=== PATIENT | female | born 1980 | race Caucasian/White ===

== ENCOUNTER 2023-04-27 18:14 | Outpatient (CLI) | payer MEDICAID | END 2023-04-27 23:59 | disposition critical access hospital (66) | LOC: EMS 18:14 | DX: R42 Dizziness and giddiness (principal) | CPT/HCPCS: A0425; A0427; A0999 ==

== ENCOUNTER 2023-04-27 18:34 | Emergency (ER) | payer MEDICAID ==
[2023-04-27 19:11] LABS: BASOPHILS # (AUTO) 0.1 10^3/uL (0.0-0.1); BASOPHILS % (AUTO) 0.4 %; EOSINOPHILS # (AUTO) 0.2 10^3/uL (0.0-0.7); EOSINOPHILS % (AUTO) 1.6 %; HCT - HEMATOCRIT 39.4 % (37.0-47.0); HGB - HEMOGLOBIN 12.1 g/dL (12.0-16.0); LYMPHOCYTES # (AUTO) 2.8 10^3/uL (1.5-3.5); LYMPHOCYTES % (AUTO) 20.1 %; MEAN CORPUSCULAR HEMOGLOBIN 25.4 pg (27.0-31.0); MEAN CORPUSCULAR HGB CONC 30.7 g/dL (32.0-36.0); MEAN CORPUSCULAR VOLUME 82.6 fL (81.0-99.0); MEAN PLATELET VOLUME 8.6 fL (7.9-10.8); MONOCYTES # (AUTO) 0.6 10^3/uL (0.0-1.0); MONOCYTES % (AUTO) 4.4 %; NEUTROPHILS # (AUTO) 10.2 10^3/uL (1.5-6.6); NEUTROPHILS % (AUTO) 73.1 %; PLT - PLATELET COUNT 366 10^3/uL (130-450); RED BLOOD COUNT 4.77 10^6/uL (4.20-5.40); WHITE BLOOD COUNT 13.9 x10^3/uL (4.8-10.8)
[2023-04-27 19:30] LABS: ALBUMIN 3.1 g/dL (3.2-5.5); ALBUMIN/GLOBULIN RATIO 0.7 (1.0-2.2); BILIRUBIN,TOTAL 0.4 mg/dL (0.2-1.0); CALCIUM 8.4 mg/dL (8.5-10.3); CREATININE 0.7 mg/dL (0.4-1.0); POTASSIUM 3.7 mmol/L (3.5-5.0); TOTAL PROTEIN 7.8 g/dL (6.7-8.2)
[2023-04-27 19:35] LABS: BILIRUBIN,URINE NEGATIVE (NEGATIVE); GLUCOSE, URINE (UA) NEGATIVE (NEGATIVE); KETONES,URINE (UA) NEGATIVE (NEGATIVE); LEUKOCYTE ESTERASE, URINE TRACE (NEGATIVE); NITRITE,URINE NEGATIVE (NEGATIVE); OCCULT BLOOD,URINE NEGATIVE (NEGATIVE); PH,URINE 5.5 PH (5.0-7.5); PROTEIN,URINE TRACE mg/dL (NEGATIVE); UROBILINOGEN,URINE 0.2 (NORMAL) E.U./dL (NORMAL)
[2023-04-27 19:36] LABS: CLARITY,URINE HAZY (CLEAR); HCG UR QUAL NEGATIVE
[2023-04-27 19:44] LABS: BACTERIA,URINE Moderate /HPF (None Seen); MUCUS,URINE Moderate Strands; RBC,URINE 0-5 /HPF (0-5); SQUAMOUS EPITHELIAL CELL,UR MOD Squamous (<= Few)
--- NOTE | 2023-04-27 19:58 | ED Physician Documentation ---
PD HPI SYNCOPE - Stated complaint Stated Complaint: DIZZINESS - Chief complaint Chief Complaint: Neuro - History obtained from History obtained from: Patient, EMS - History of Present Illness Witnessed: Witnessed Timing - onset: Today Duration: No: Seconds, Minutes, Hours Pain level max: 0 Pain level now: 0 - Additional information Additional information: Patient is a 43-year-old female who presents to the emergency department complaining of syncope today. She states she was out on a carnival today in the sun, did not eat or drink much. She had been sitting down when she stood up and felt lightheaded. She started to walk towards her car when she felt her vision go "dim". She states she sat down and passed out on the ground. She currently feels normal. No chest pain. No shortness of breath. No palpitations. Recent travel. No recent surgery. No leg swelling. Not on any hormonal therapies. Does not smoke. No history of DVT or PE. No cardiac history. Review of Systems Constitutional: denies: Fever, Chills Respiratory: denies: Dyspnea, Cough GI: denies: Nausea, Vomiting, Diarrhea : denies: Dysuria Skin: denies: Rash Musculoskeletal: denies: Neck pain, Back pain Neurologic: denies: Headache PD PAST MEDICAL HISTORY - Past Medical History Cardiovascular: None Respiratory: None GI: GERD Psych: Depression - Past Surgical History Past Surgical History: Yes /[employer]: Tubal ligation - Present Medications Home Medications: Ambulatory Orders Medication Instructions Recorded Confirmed Acetaminophen [Tylenol] 650 mg PO ONCE 02/03/15 02/03/15 Meclizine [Antivert] 12.5 mg PO ONCE 02/03/15 02/03/15 raNITIdine HCl [Zantac] 150 mg PO DAILY 02/03/15 02/03/15 - Allergies Allergies/Adverse Reactions: Allergies Allergy/AdvReac Type Severity Reaction Status Date / Time codeine [Codeine] Allergy Rash Verified 03/04/13 18:00 Penicillins Allergy Rash Verified 03/04/13 18:02 promethazine HCl * Allergy twitching Verified 03/04/13 18:02 [From Phenergan] acetaminophen [From Vicodin] AdvReac vomiting Verified 03/04/13 18:01 hydrocodone bitartrate * AdvReac vomiting Verified 03/04/13 18:01 [From Vicodin] - Social History Does the pt smoke?: No Smoking Status: Never smoker Does the pt drink ETOH?: No Does the pt have substance abuse?: No - Immunizations Immunizations are current?: No Immunizations: Other immun current - POLST Patient has POLST: No PD ED PE NORMAL - Vitals Vital signs reviewed: Yes - General General: Alert and oriented X 3, No acute distress - HEENT HEENT: Atraumatic, PERRL, EOMI, Moist mucous membranes - Neck Neck: Supple, no meningeal sign, No bony TTP - Cardiac Cardiac: RRR, No murmur, Strong equal pulses - Respiratory Respiratory: No respiratory distress, Clear bilaterally - Abdomen Abdomen: Normal bowel sounds, Soft, Non tender, Non distended - Derm Derm: Warm and dry, No rash - Extremities Extremities: No edema, No calf tenderness / cord - Neuro Neuro: Alert and oriented X 3 - Psych Psych: Normal mood, Normal affect Results - Vitals Vitals: Vital Signs - 24 hr 04/27/23 04/27/23 04/27/23 18:46 19:30 20:07 Temperature 36.2 C L Heart Rate 86 86 Heart Rate [ 92 Sitting] Heart Rate [ 97 Standing] Heart Rate [ 84 Supine] Respiratory 15 16 Rate Blood Pressure 120/63 116/61 Blood Pressure 127/89 H [Sitting] Blood Pressure 126/74 [Standing] Blood Pressure 117/73 [Supine] O2 Saturation 100 100 04/27/23 20:54 Temperature Heart Rate 84 Heart Rate [ Sitting] Heart Rate [ Standing] Heart Rate [ Supine] Respiratory 15 Rate Blood Pressure 112/75 Blood Pressure [Sitting] Blood Pressure [Standing] Blood Pressure [Supine] O2 Saturation 98 Oxygen O2 Source Room air - EKG (time done) 1913 EKG releavant findings:: EKG personally interpreted by author of this note. Relevant findings are: Rate: Rate (enter#) (87) Rhythm: NSR [place]: Normal Intervals: Normal [place] QRS: Normal Ischemia: Normal ST segments - Labs Labs: Laboratory Tests 04/27/23 04/27/23 04/27/23 19:06 19:06 19:06 WBC 13.9 H RBC 4.77 Hgb 12.1 Hct 39.4 MCV 82.6 MCH 25.4 L MCHC 30.7 L RDW 14.0 Plt Count 366 MPV 8.6 Neut # (Auto) 10.2 H Lymph # (Auto) 2.8 [place] # (Auto) 0.6 Eos # (Auto) 0.2 Baso # (Auto) 0.1 Absolute Nucleated RBC 0.00 Nucleated RBC % 0.0 D-Dimer 224.4 Sodium 133 L Potassium 3.7 Chloride 101 Carbon Dioxide 27 Anion Gap 5.0 L BUN 9 Creatinine 0.7 Estimated GFR (MDRD) 91 Glucose 114 H Calcium 8.4 L Total Bilirubin 0.4 AST 19 ALT 18 Alkaline Phosphatase 82 Troponin I High Sens Total Protein 7.8 Albumin 3.1 L Globulin 4.7 H Albumin/Globulin Ratio 0.7 L Lipase 25 Urine Color Urine Clarity Urine pH Ur Specific [place] Urine Protein Urine Glucose (UA) Urine Ketones Urine Occult Blood Urine Nitrite Urine Bilirubin Urine Urobilinogen Ur Leukocyte Esterase Urine RBC Urine WBC Ur Squamous Epith Cells Urine Bacteria Urine Mucus Ur Microscopic Review Urine Culture Comments Urine HCG, Qual 04/27/23 04/27/23 19:06 19:19 WBC RBC Hgb Hct MCV MCH MCHC RDW Plt Count MPV Neut # (Auto) Lymph # (Auto) [place] # (Auto) Eos # (Auto) Baso # (Auto) Absolute Nucleated RBC Nucleated RBC % D-Dimer Sodium Potassium Chloride Carbon Dioxide Anion Gap BUN Creatinine Estimated GFR (MDRD) Glucose Calcium Total Bilirubin AST ALT Alkaline Phosphatase Troponin I High Sens < 2.3 L Total Protein Albumin Globulin Albumin/Globulin Ratio Lipase Urine Color YELLOW Urine Clarity HAZY Urine pH 5.5 Ur Specific [place] 1.025 Urine Protein TRACE Urine Glucose (UA) NEGATIVE Urine Ketones NEGATIVE Urine Occult Blood NEGATIVE Urine Nitrite NEGATIVE Urine Bilirubin NEGATIVE Urine Urobilinogen 0.2 (NORMAL) Ur Leukocyte Esterase TRACE H Urine RBC 0-5 Urine WBC 11-25 H Ur Squamous Epith Cells MOD Squamous H Urine Bacteria Moderate H Urine Mucus Moderate Strands Ur Microscopic Review INDICATED Urine Culture Comments NOT INDICATED Urine HCG, Qual NEGATIVE - Rads (name of study) cxr Relevant Findings:: Final report received, See rad report PD Medical Decision Making - ED course Complexity details: reviewed results, re-evaluated patient, considered differential, d/w patient ED course: No acute findings on chest x-ray, EKG or laboratory testing. Feels much better after IV fluids. Not orthostatic. Ambulating without difficulty. No acute findings on telemetry. History is consistent with vasovagal syncope after being out in the warm sun with decreased oral intake and symptoms occurring upon standing. She is not . No evidence of PE. No evidence of DVT. We will have her follow-up with her doctor for further care. Patient counseled regarding signs and symptoms for which I believe and urgent re-evaluation would be necessary. Patient with good understanding of and agreement to plan and is comfortable going home at this time This document was made in part using voice recognition software. While efforts are made to proofread this document, sound alike and grammatical errors may occur. Departure - Departure Disposition: 01 Home, Self Care Clinical Impression: Vasovagal syncope Condition: Good Instructions: ED Syncope Vasovagal Follow-Up: your,doctor in 1 week [Other] Comments: Please make sure you are drinking plenty of water at home. Please follow-up with your doctor for further care. Please return if you worsen. You should follow-up with your doctor in about 1 week for recheck. Return for chest pain, shortness of breath or other new or worrisome symptoms. Discharge Date/Time: 04/27/23 20:55
[2023-04-27] MEDS: SODIUM CHLORIDE 0.9% 1,000 ML IV STA (20:00)
--- NOTE | 2023-04-27 20:16 | XRAY Report ---
PROCEDURE: Chest 1 View X-Ray INDICATIONS: syncope TECHNIQUE: One view of the chest was acquired. COMPARISON: None. FINDINGS: Surgical changes and devices: None. Lungs and pleura: No pleural effusions or pneumothorax. Lungs are clear. Mediastinum: Mediastinal contours appear normal. Heart size is normal. Bones and chest wall: No suspicious bony lesions. Overlying soft tissues appear unremarkable. IMPRESSION: No acute cardiopulmonary process. Reviewed by: Yogi Hwang on 04/27/2023 8:14 PM PDT Approved by: Yogi Hwang on 04/27/2023 8:14 PM PDT Station ID: [id number]
[2023-04-27 20:57] VITALS: BP 112/75
== END 2023-04-27 20:55 | disposition home or self-care (01) ==
LOC: EDUNIT# → ED 18:34
DX: R55 Syncope and collapse (principal)
CPT/HCPCS: 36415; 80053; 81001; 81003; 81025; 83690; 84484; 85025; 85379; 87086; 93005; 99283; 99284